=== PATIENT | male | born 1965 | race Caucasian/White ===

== ENCOUNTER 2022-12-20 13:35 | Emergency (ER) | payer BC, SELFPAY ==
--- NOTE | ~2022-12-20 | XR_ITS ---
EXAMINATION: XR finger 1st LT min 2V DATE: 12/20/2022 13:59 INDICATION: Left thumb injury and pain. TECHNIQUE: 3 views of left thumb were obtained. COMPARISON: None. FINDINGS: Bone alignment is normal. No fracture. There is mild osteoarthritis of first carpometacarpa l joint and first interphalangeal joint. IMPRESSION: 1. Mild polyarticular osteoarthritis. Reviewed, dictated and finalized at location A.
--- NOTE | 2022-12-20 13:43 | ED.UPPEXIN ---
HPI - Extremity Injury (Upper) General Chief Complaint: Extremity Injury, Upper Stated Complaint: Left Thumb Injury Source: patient and RN notes reviewed History of Present Illness HPI narrative: 57 yo M presents to urgent care with complaints of left thumb pain and swelling to base of thumb. Pt states about 1 week ago, the cover to a boat motor shut on his thumb. Pt states the initial swelling has improved greatly but he continues to have some swelling to the base of this thumb and some pain. Pt states the cover also hit his right index finger but denies any significant injury. Denies any numbness, tingling, or any other injury. Related Data Home Medications Medication Instructions Recorded Confirmed rosuvastatin 20 mg tablet 20 mg PO DIRECTED 12/20/22 12/20/22 Allergies Allergy/AdvReac Type Severity Reaction Status Date / Time No Known Allergies Allergy Mild Verified 12/20/22 13:51 Review of Systems Review of Systems: CONSTITUTIONAL: Denies fever, chills, or sweats. EYES: Denies visual changes, redness, or discharge. ENT: Denies otalgia and sore throat CARDIOVASCULAR: Denies chest pain, palpitations, or edema. RESPIRATORY: Denies cough or dyspnea. GASTROINTESTINAL: Denies abdominal pain, nausea, vomiting, or diarrhea. GENITOURINARY: Denies dysuria or hematuria. SKIN: Denies rash or itching. MUSCULOSKELETAL: Left thumb pain NEUROLOGIC: Denies headache, numbness, or weakness. Pertinent positives per HPI. PMFSH Comments At the time of my signature, I reviewed and agree with the nursing past medical, surgical, social, and family history. There is no relevant family history pertinent to the patient complaint. Exam Narrative: GENERAL: This is a well-nourished, well-developed patient, in no apparent distress. HEAD: normocephalic, atraumatic. EYES: Sclera clear/white. Vision is grossly intact. EARS: External ears normal, auditory canals clear and without drainage. Hearing grossly intact. NOSE: External nose normal with no obvious nasal discharge, nares without redness, no rhinorrhea. CARDIOVASCULAR: Regular rate RESPIRATORY: No respiratory distress SKIN: warm, intact with no suspicious lesions or rash, good texture and turgor. NEURO: awake, alert, and oriented to person, place and time. There were no obvious focal neurologic abnormalities. EXTREMITIES:full ROM with left thumb. approximately 1 cm area of hardened swelling to 1st MCP joint. No significant tenderness noted. BACK: Nontender without deformity or crepitance. No flank tenderness. Course Course Level of Care: Express Care Visit Vital Signs Vital signs: Vital Signs Temperature 98.7 F 12/20/22 13:46 Pulse Rate 84 12/20/22 13:46 Respiratory Rate 20 12/20/22 13:46 Blood Pressure 130/83 12/20/22 13:46 Pulse Oximetry 98 12/20/22 13:46 Oxygen Delivery Room Air 12/20/22 13:46 Temperature 98.7 F 12/20/22 13:46 Pulse Rate 84 12/20/22 13:46 Respiratory Rate 20 12/20/22 13:46 Blood Pressure 130/83 12/20/22 13:46 Pulse Oximetry 98 12/20/22 13:46 Oxygen Delivery Room Air 12/20/22 13:46 Reviewed MDM - Extremity Injury (Upper) MDM Narrative Medical decision making narrative: If symptoms persist in 1 week after conservative treatment, follow-up with specialist. Follow-up with hand specialist. Dr. Diggs is the hand specialist in [place]. Differential Diagnosis Differential diagnosis: Likely other (thumb Fx, dislocation, cyst) Imaging Data Radiologist's impression: [facility] [employer] [place] [id number] XRay Report Signed Patient: Dane Batista : 1965 MR#: [id number] Age/Sex: 57 / M Acct:[id number] Loc: [facility]? ? ADM Date: 12/20/22Attending Dr: Ordering Physician: Heaven Maldonado APRN Date of Service: 12/20/22 Procedure(s): XR finger 1st LT min 2V Accession Number(s): [id number] cc: Heaven Maldonado APRN; S
[2022-12-20 13:46] VITALS: BP 130/83; PULSE 84; RESP 20; TEMP 37.1; O2SAT 98
== END 2022-12-20 14:26 | disposition home or self-care (01) ==
PROVIDERS: Emergency Provider Nurse Practitioner Family; PCP Internal Medicine Geriatric Medicine
DX: S63.642A Sprain of metacarpophalangeal joint of left thumb, initial encounter (principal); W20.8XXA Other cause of strike by thrown, projected or falling object, initial encounter; E78.00 Pure hypercholesterolemia, unspecified
CPT/HCPCS: 73140; 99213; G0463

== ENCOUNTER 2025-04-28 16:23 | Emergency (ER) | payer OTHER, SELFPAY ==
--- OUTSIDE RECORDS SUMMARY | 2025-04-28 16:25 | XMS_ITS | Clinical Summary ---
Author Organization [facility] [address] [facility] Address [address] [place] [address] Care Team Providers Care Foundry Manager Name Role Phone Madonna Kelly MD Primary Care Provider [phone] Vargas Smith MD Unavailable [phone] Denilson Murray DPM Unavailable [phone] Allergies No known active allergies Medications cyanocobalamin (Vitamin B-12) 1,000 mcg tabletIndications: Prevention of Vitamin B12 Deficiency Take 2 tablets (2,000 mcg total) by mouth daily Active multivitamin with minerals tablet Take 1 tablet by mouth daily Active gabapentin (NEURONTIN) 600 mg tablet TAKE 1 TABLET BY MOUTH AT NIGHT BEFORE BEDTIME 01/14/20 25 Active metFORMIN XR (GLUCOPHAGE XR) 500 mg 24 hr tabletIndications: 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) Take 1 tablet (500 mg total) by mouth daily with dinner 90 tablet 3 02/11/20 25 Active rosuvastatin (CRESTOR) 20 mg tabletIndications: 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),Multiple-typ e hyperlipidemia Take 1 tablet (20 mg total) by mouth daily with dinner 90 tablet 3 02/11/20 25 Active tadalafiL (ADCIRCA) 10 mg tabletIndications: ED (erectile dysfunction) of organic origin Take 1 tablet (10 mg total) by mouth daily as needed for erectile dysfunction 6 tablet 11 02/11/20 25 Active tirzepatide (Mounjaro) 7.5 mg/0.5 mL pen injector injection Inject 0.5 mL (7.5 mg total) under the skin every 7 days 2 mL 04/11/20 25 Active tirzepatide (Mounjaro) 5 mg/0.5 mL pen injector injectionIndicatio ns: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) Inject 0.5 mL (5 mg total) under the skin every 7 days 2 mL 03/13/20 25 025 Discontin ued(Alter josep therapy) Active Problems Problem Noted Date Diagnosed Date Controlled type 2 diabetes with neuropathy 02/10 Idiopathic peripheral neuropathy 07/25/2024 Overweight with body mass in dex (BMI) of 28 to 28.9 in adult 01/25/2024 Fatty infiltration of liver 07/19/2022 Overview (10/03/2022): Determined by CT November 2006 LIVER US 08/31/22:Right upper quadrant ultrasound was performed. No discrete hepatic mass seen. There is increased echotexture of the liver consistent with fatty infiltration. No intrahepatic ductal dilatation seen. The gallbladder is negative for stone. Gallbladder wall measures 1.4 mm. Common bile duct measures 5.5 mm. Pancreas and right kidney are unremarkable. Right kidney measures 9.8 x 4.9 x 5.4 cm. Aorta measures upwards of 2.2 cm in diameter proximally. IVC and portal vein are patent. Assessment & Plan (01/03/2023 9:48 AM CDT): LFTs improving, iron still high, asymptomatic. Down 3 lbs in 3 months. No acute findings on exam. Will check Hep B core Ab IGg and hemachromatosis test. Repeat CMP, CBC, HbA1c, lipids, and iron panel before annual exam in July. Continue heart healthy diet and weight loss. Assessment & Plan (10/03/2022 9:23 AM SUPERVISOR PUBLICATIONS): Confirmed on liver US 08/31/22. LFTs are down but still significantly elevated, +GGT, and elevated ferritin. Tried to start Rybelsus for weight loss/Predibetes, insurance would not cover. Patient still asymptomatic, no acute findings on exam or HSM. Offered GI referral, patient want to see what weight loss will do first. Discussed heart healthy low fat diet in detail. Educated on AHA recommendations for heart healthy exercise. Avoid alcohol and Tylenol use. Follow in 3 months with repeat CMP and iron panel. 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 Liver enzymes are improving, ALT and transferrin still mildly elevated, all other liver workup was unremarkable. Continue current regimen and heart healthy diet and exercise. Assessment & Plan (08/26/2021 4:18 PM SUPERVISOR PUBLICATIONS): Patient returns for follow up on cholesterol as LDL noted to 191 on last labs. He was started on crestor and is tolerating well. He is also seeing great results with medication and LDL is now down to 90. Have encouraged lifestyle modification with low cholesterol diet and exercise. He is to continue medication. He will follow up as scheduled or sooner if needed. Other insomnia 07/09/2021 ED (erectile dysfunction) of organic origin 08/2019 Osteoma 02/21/2020 Assessment & Plan (02/26/2020 9:29 PM CDT): Avoid ear cleaning techniques Avoid water to ears Assessment & Plan (02/21/2020 9:56 AM CDT): Per Dr. Soliman's exam findings. I spoke with him today on the phone since the report is not available--he recommends ENT for this. He does not think this finding is related to the vertigo. Asymmetrical hearing loss 12/21/2013 Overview (07/07/2020): Asymmetrical hearing loss confirmed on audiogram February 2020 right ear much worse than left, MRI head scan (-) Resolved Problems Problem Noted Date Diagnosed Date Resolved Date Controlled type 2 diabetes m ellitus without complication, without long-term current use of insulin 07/25/2024 02/10/2025 Full thickness rotator cuff tear 11/08/2022 01/25/2024 Elevated LFTs 08/30/2022 01/25/2024 Assessment & Plan (10/03/2022 9:24 AM SUPERVISOR PUBLICATIONS): Due to fatty liver disease, see plan above. Assessment & Plan (09/01/2022 8:20 AM SUPERVISOR PUBLICATIONS): Repeat AST/ALT essentially unchanged from last month. Alk Phos was normal. HbA1c was 6.2. no acute findings on exam. Will order Ggt, CBC, hepatitis panel, iron panel, ferritin, MALAIKA, ceruloplasmin. Will order liver US to further assess hepatic function. Will call with results. Discussed starting GLP-1 for prediabetes, will wait until after blood tests and US results. Low fat diet. Heart healthy exercise. Follow in 2 weeks, sooner if needed. Prediabetes 08/30/2022 03/13/2025 Assessment & Plan (01/03/2023 10:39 AM CDT): Insurance denied Rybelsus, patient refused injectables. Fasting sugar on labs last week was 122. No acute findings on exam. Continue to adjust diet and increase heart healthy exercise. Assessment & Plan (08/30/2022 9:18 AM SUPERVISOR PUBLICATIONS): Repeat AST/ALT essentially unchanged from last month. Alk Phos was normal. HbA1c was 6.2. no acute findings on exam. Will order Ggt, CBC, hepatitis panel, iron panel, ferritin, and liver US to further assess hepatic function. Will call with results. Discussed starting GLP-1 for prediabetes, will wait until after blood tests and US results. Low fat diet. Heart healthy exercise. Call with any changes or concerns. Encounter for screening colonoscopy 07/17/2020 07/09/2021 Overview (07/17/2020): Added automatically from request for surgery [id number] BPPV (benign paroxysmal posi tional vertigo), left 02/26/2020 07/07/2020 Assessment & Plan (03/23/2020 9:24 AM CDT): Post Eply maneuver by ENT a few weeks ago, and pt report no episodes of dizziness since then. He is cleared to go back to work, and pt reports that he will also have to be evaluated by his doctor at work as well. I have asked him to let us know if the dizziness returns. Assessment & Plan (02/26/2020 9:29 PM CDT): Left Benign Positional Vertigo treated with Iris Maneuver today Warm compresses and massage to neck and right jaw and shoulders Call if no improvement in Dizziness in the next two weeks Good hydration Post-Iris maneuver instructions discussed and Handout provided Tinnitus of right ear 02/05/20202024 Vertigo 01/28/2020 07/07/2020 Assessment & Plan (02/21/2020 1:20 PM CDT): Spoke with Dr. BAUTISTA and she recommends referral to neurology. Pt did have Brain and cervical MRI January 27 while inpatient as well as a stress test. Pt needs to remain off work until his vertigo is resolved and I have given him a note. He will f/u with us in 1 month. I have suggested P.T. as well and patient states that he does not want to go back bc it made him very sick. I have suggested that he take meclizine but he reports that it doesn't really seem to make a difference for him. He saw Dr. Soliman for audiology and we are awaiting that report, but I did get to speak with him today on the phone, and he did say that he saw a osteoma in his right ear, but he did not think that this finding would be associated with the vertigo. Dysequilibrium 01/28/2020 02/05/2020 Exertional dyspnea 01/28/2020 0 Cobalamin deficiency 12/21/2013 020 Overview (11/11/2016): B12 deficiency Encounters Date Type Department Care Team Description 04/28/2025 Telephone [facility] [address] [place] [address] Madonna Kelly MD 04/11/2025 9:30 AM CDT Office Visit [facility] [address] [place] [address] Paloma Zimmerman NP 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) (Primary Dx); Overweight with body mass index (BMI) of 28 to 28.9 in adult 04/04/2025 8:25 AM CDT Lab [facility] [address] [place] [address] 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) 03/13/2025 10:30 AM CDT Office Visit [facility] [address] [place] [address] Paloma Zimmerman NP 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) (Primary Dx); Overweight with body mass index (BMI) of 29 to 29.9 in adult 03/13/2025 [facility]phone [facility] [address] [place] [address] Madonna Kelly MD 02/10/2025 11:15 AM CDT Office Visit [facility] [address] [place] [address] Madonna Kelly MD Annual physical exam (Primary Dx); 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); Fatty infiltration of liver; Multiple-type hyperlipidemia; ED (erectile dysfunction) of organic origin 02/10/2025 Results [facility] [address] [place] [address] Madonna Kelly MD PSA screen, Lipid panel, Hemoglobin A1c, Additional followed-up results: 4 02/06/2025 9:05 AM CDT Lab [facility] [address] [place] [address] New onset type 2 diabetes mellitus (HCC); Multiple-type hyperlipidemia from Last 3 Months Immunizations Immunization Administration Dates Next Due Influenza, Quadrivalent, Spl it, Preservative Free, Intramuscular 07/19/2022,07/09/2021,07/07/2020 Influenza, Unspecified 07/25/2024(Deferred: Elvia ent Refused) MMR 11/05/2006 Tdap 07/09/2021,06/08/2012 Surgical History Surgery Date Site/Laterality Comments COLONOSCOPY 11/06/2007 - 12/05/2007 (-) Dr. Crane COLONOSCOPY 08/31/2020 (-) Dr. Smith sigmoid diverticulosis ARTHROSCOPIC REPAIR SLAP LESION SHOULDER W/ W/O THERMAL CAPSULORRHAPHY 05/26/[address] [facility] surgery [place]o right rotator cuff repair Medical History Medical History Date Comments Hyperlipidemia Full thickness rotator cuff tear 11/08/2022 Social History Tobacco Use Types Packs/Day Years Used Date Smoking Tobacco: Never Smokeless Tobacco: Never Tobacco Cessation:Counseling Given: Yes Alcohol Use Standard Drinks/Week Comments Yes 10 (1 standard drink = 0.6 oz pu re alcohol) AUDIT-C Answer Date Recorded Q1: How often do you have a drink containing alc ohol? 2-3 times a week 02/10/2025 Q2: How many drinks containi ng alcohol do you have on a typical day when you are drinking? 3 or 4 02/10/2025 Q3: How often do you have si x or more drinks on one occasion? Weekly 02/10/2025 PHQ-2 Answer Date Recorded PHQ-2 Total Score (If total score is 3 or more points, staff should administer the PHQ-9) 0 04/11/2025 Sex and Gender Information Value Date Recorded Sex Assigned at Not on file Legal Sex Male 1:01 PM SUPERVISOR PUBLICATIONS Gender Identity Not on file Sexual Orientation Not on file Obstetrics History Last Filed Vital Signs Vital Sign Reading Time Taken Comments Blood Pressure 128/66 04/11/2025 9:25 AM CDT Pulse 73 04/11/2025 9:25 AM CDT Temperature 36.1 C (96.9 F) 04/11/2025 9:25 AM CDT Respiratory Rate 18 04/11/2025 9:25 AM CDT Oxygen Saturation 96% 04/11/2025 9:25 AM CDT Inhaled Oxygen Concentration - - Weight 84.4 kg (186 lb) 04/11/2025 9:25 AM CDT Height 172.7 cm (5' 8) 04/11/2025 9:25 AM CDT Body Mass Index 28.28 04/11/2025 9:25 AM CDT Plan of Treatment Health Maintenance Due Date Last Done Comments Dilated Eye Exam 1965 Foot Exam 1965 Hepatitis B Screening 1981 Zoster Vaccine (1 of 2) 2013 Covid-19 Vaccine (3 - season) 2025 10/13/2020, 09/15/2020 Influenza Vaccine (#1) 2025 , 07/09/2021, 07/07/2020 Hemoglobin A1C 08/09/2025 02/06/2025, 07/07, 01/25/2024, Additional history exists Albumin Creatinine Ratio, Urine 02/06/2026 02/06/2025, 07/16/2024, 01/25/2024 Lipid Panel 02/06/2026 02/06/2025, 07/07, 07/11/2022, Additional history exists Regular Well Visit/Exam 18-64 02/10/2026 02/10/2025, 01/25/2024, 07/19/2022, Additional history exists eGFR 04/04/2026 04/04/2025, 07/0 10/2024, 07/16/2024, Additional history exists Depression Screening 04/11/2026 04/11/2025, 03/13/2025, 01/25/2024, Additional history exists Prostate Cancer Screening-PSA 02/06/2027 02/06/2025, 01/25/2024, 07/11/2022, Additional history exists Colon Cancer Screening-Colonoscopy 08/28/2030 08/28/2020 DTaP/Tdap/Td Vaccine (3 - Td or Tdap) 07/09/2031 07/09/2021, 06/08/2012 Colon Cancer Screening-CT Colonography Discontinued 08/28/2020 Colon Cancer Screening-DNA Stool Discontinued 08/28/2020 Colon Cancer Screening-FIT Discontinued 08/28/2020 Colon Cancer Screening-Sigmoidoscopy Discontinued 08/28/2020 Hepatitis C Screening Completed 08/30/2022, 021 Pneumococcal vaccine <65 Aged Out No longer eligible based on patient's age to complete this topic Procedures Procedure Name Priority Date/Time Associated Diagnosis Comments EGFR Routine 04/04/2025 8:10 AM CDT 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) BASIC METABOLIC PANEL Routine 04/04/2025 8:10 AM CDT 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) EGFR Routine 02/06/2025 9:53 AM CDT New onset type 2 diabetes mellitus (HCC) ALBUMIN CREATININE RATIO, URINE Routine 02/06/2025 9:53 AM CDT New onset type 2 diabetes mellitus (HCC) CHOLESTEROL, LDL, DIRECT Routine 02/06/2025 9:53 AM CDT New onset type 2 diabetes mellitus (HCC) COMPREHENSIVE METABOLIC PANEL Routine 02/06/2025 9:53 AM CDT New onset type 2 diabetes mellitus (HCC) HEMOGLOBIN A1C Routine 02/06/2025 9:53 AM CDT New onset type 2 diabetes mellitus (HCC) LIPID PANEL Routine 02/06/2025 9:53 AM CDT Multiple-type hyperlipidemia PSA SCREEN Routine 02/06/2025 9:53 AM CDT New onset type 2 diabetes mellitus (HCC) HEPATITIS PANEL, ACUTE Routine 08/30/2022 8:55 AM SUPERVISOR PUBLICATIONS Elevated LFTs COLONOSCOPY 08/28/2020 9:14 AM SUPERVISOR PUBLICATIONS from Last 3 Months or Most Recently Relevant to Health Maintenance Results * eGFR (04/04/2025 8:10 AM CDT) eGFR >90 >=60 mL/min/1. 73 m2 Comment: Interpretive Data Reference Interval Normal >/= 90 mL/min/1.73m2 Mildly decreased* 60 - 89 mL/min/1.73m2 Mildly to moderately decreased 45 - 59 mL/min/1.73m2 Moderately to severely decreased 30 - 44 mL/min/1.73m2 Severely decreased 15 - 29 mL/min/1.73m2 Kidney Failure < 15 mL/min/1.73m2 *Relative to young adult level Estimated glomerular filtration rate is determined by the 2020 CKD-EPI equation recommended by the National Kidney Foundation (A Unifying Approach to GFR Estimation: Recommendations of the NKF-ASK Task Force on Reassessing the Inclusion of Race in Diagnosing Kidney Disease, JASN 2020). The CKD-EPI equation should not be used for patients with unstable renal function and has not been validated in children and those over 70. Current interpretive data was last reviewed 2021. Testing performed by: [address] [address] Blood 04/04/2025 8:10 AM CDT 04/04/2025 2:08 PM CDT us Paloma Zimmerman NP LAB BLOOD ORDERABLES Final Resul t JUNE YOUNG ([place]) [address] [facility] [place] [address] * Basic metabolic panel (04/04/2025 8:10 AM CDT) Sodium 137 135 - 145 mmol/L Comment:Testing performed by : [address] [address] Potassium, pl 4.3 3.3 - 4.9 mmol/L JUNE YOUNG ([place]) Comment:Testing performed by : [address] [address] Chloride 102 97 - 110 mmol/L JUNE YOUNG ([place]) Comment:Testing performed by : [address] [address] CO2 25 22 - 32 mmol/L JUNE YOUNG ([place]) Comment:Testing performed by : [address], [address] Anion gap 10 2 - 15 mmol/L JUNE YOUNG ([place]) Comment:Testing performed by : [address], [address] BUN 12 6 - 25 mg/dL JUNE YOUNG ([place]) Comment:Testing performed by : [address] [address] Creatinine 0.91 0.80 - 1.30 mg/dL JUNE YOUNG ([place]) Comment:Testing performed by : [facility], [address] [place] [address]., [address] Glucose 116 70 - 199 mg/dL JUNE YOUNG ([place]) Comment: Interpretive Data Fasting glucose >/= 126 mg/dl is diagnostic for diabetes. Fasting is defined as no caloric intake for at least 8 hours. Fasting glucose between 100 mg/dl to 125 mg/dl is diagnostic of prediabetes. In a patient with classic symptoms of hyperglycemia or hyperglycemic crisis, a random glucose >/= 200 mg/dl is diagnostic for diabetes. In the absence of unequivocal hyperglycemia, results should be confirmed by repeat testing. The classification and Diagnosis of Diabetes Diabetes Care 2021; 46: S19-S40. Current interpretive data was last revised 2022. Testing performed by: [facility], [address] [place] [address]., [address] Calcium 9.5 8.5 - 10.3 mg/dL JUNE YOUNG ([place]) Comment:Testing performed by : [address] [address] Blood 04/04/2025 8:10 AM CDT 04/04/2025 1:50 PM CDT us Paloma Zimmerman NP LAB BLOOD ORDERABLES Final Resul t JUNE YOUNG ([place]) 1 [facility] Department [place] [address] * eGFR (02/06/2025 9:53 AM CDT) eGFR >90 >=60 mL/min/1. 73 m2 Comment: Interpretive Data Reference Interval Normal >/= 90 mL/min/1.73m2 Mildly decreased* 60 - 89 mL/min/1.73m2 Mildly to moderately decreased 45 - 59 mL/min/1.73m2 Moderately to severely decreased 30 - 44 mL/min/1.73m2 Severely decreased 15 - 29 mL/min/1.73m2 Kidney Failure < 15 mL/min/1.73m2 *Relative to young adult level Estimated glomerular filtration rate is determined by the 2020 CKD-EPI equation recommended by the National Kidney Foundation (A Unifying Approach to GFR Estimation: Recommendations of the NKF-ASK Task Force on Reassessing the Inclusion of Race in Diagnosing Kidney Disease, JASN 2020). The CKD-EPI equation should not be used for patients with unstable renal function and has not been validated in children and those over 70. Current interpretive data was last reviewed 2021. Testing performed by: [facility], [address] [place] [address]., [address] Blood 02/06/2025 9:53 AM CDT 02/06/2025 4:08 PM CDT us Madonna Kelly MD LAB BLOOD ORDERABLES Final Result Performing Organization Address [facility] Co de Phone Number JUNE YOUNG ([place]) [address] [facility] [place] [address] * PSA screen (02/06/2025 9:53 AM CDT) PSA-Total 0.52 <=5.40 ng/mL Comment: Interpretive Data AGE SEX REFERENCE INTERVAL 0 minutes-150 years Female None 0 minutes-49 years Male None 50-59 years Male 0-3.90 60-69 years Male 0-5.40 70-79 years Male 0-6.20 80-150 years Male 0-6.20 The [employer] PSA Total assay procedure was used. Results from different manufacturers or methods may not be comparable. Serial testing should be performed using the same method. Current interpretive data last revised 21. Testing performed by: [facility], [address] [place] [address]., [address] Blood 02/06/2025 9:53 AM CDT 02/06/2025 3:10 PM CDT us Madonna Kelly MD LAB BLOOD ORDERABLES Final Result Performing Organization Address [facility] Co de Phone Number JUNE YOUNG ([place]) 1 [facility] Department [place] [address] * Albumin Creatinine Ratio, Urine (02/06/2025 9:53 AM CDT) Albumin Ur <12.0 mg/L Comment: Interpretive Data No reference range established. Current interpretive data was last revised 2018. Testing performed by: [facility], [address] [place] [address]., [id number] Creatinine Ur 137.1 mg/dL JUNE YOUNG ([place]) Comment: Interpretive Data No reference range established. Current interpretive data was last revised 2018. Testing performed by: [facility], [address] [place] [address]., [address] Albumin Creatinine Ratio, Ur <9 1 - 29 mg/g JUNE YOUNG ([place]) Comment:Testing performed by : [address] [address] Urine 02/06/2025 9:53 AM CDT 02/06/2025 3:10 PM CDT us Madonna Kelly MD LAB URINE ORDERABLES Final Result HUNTERADAM YOUNG ([place]) 1 [facility] [place] [address] * Cholesterol, LDL, direct (02/06/2025 9:53 AM CDT) LDL Cholesterol, Direct 57 <=129 mg/dL Comment: Interpretive Data Ages < or = 19 years Acceptable: <110 mg/dL Borderline high: 110-129 mg/dL High: >or= 130 mg/dL Ages > or = 20 years Optimal: <100 mg/dL Near optimal: 100-129 mg/dL Borderline high: 130-159 mg/dL High: >160 mg/dL Literature References: 1. Expert Panel on Integrated Guidelines for Cardiovascular Health and Risk Reduction in Children and Adolescents. Pediatrics 2011;128:S213 2. NCEP Expert Panel. Circulation 2004;110:227 Current Interpretive Data was last revised on 2018. Testing performed by: [address] [address] Blood 02/06/2025 9:53 AM CDT 02/06/2025 3:10 PM CDT us Madonna Kelly MD LAB BLOOD ORDERABLES Final Result Performing Organization Address [facility] Co de Phone Number JUNE YOUNG ([place]) [address] [place] [address] * (ABNORMAL) Hemoglobin A1c (02/06/2025 9:53 AM CDT) Hgb A1C 6.7(H) 4.0 - 5.6 % Comment:Testing performed by : [facility], [address] [place] [address]., [id number] Estimated Average Glucose 146 mg/dL JUNE YOUNG ([place]) Comment: The ADA recommends reporting an estimated Average Glucose (eAG) with all Hemoglobin A1c results using the equation derived from a study of 507 normal and diabetic adults. Minority populations were underrepresented and children were not included. (Diabetes Care 31:7791-7449, 2008). The eAG is not equivalent to a fasting glucose. Testing performed by: [facility], [address] [place] [address], [place]., [address] Blood 02/06/2025 9:53 AM CDT 02/06/2025 3:10 PM CDT Madonna Kelly MD LAB BLOOD ORDERABLES Final Result Performing Organization Address City/[facility] Co de Phone Number JUNE YOUNG ([place]) [address] [place] [address] * (ABNORMAL) Lipid panel (02/06/2025 9:53 AM CDT) Cholesterol 118 30 - 199 mg/dL Comment: Interpretive Data Ages < or = 19 years Acceptable: <170 mg/dL Borderline high: 170-199 mg/dL High: >or= 200 mg/dL Ages > or = 20 years Desirable: <200 mg/dL Borderline high: 200-239 mg/dL High: >or= 240 mg/dL Literature References: 1. Expert Panel on Integrated Guidelines for Cardiovascular Health and Risk Reduction in Children and Adolescents. Pediatrics 2011;128:S213 2. NCEP Expert Panel. Circulation 2004;110:227 Current Interpretive Data was last revised on 2018. Testing performed by: [facility], [address] [place] [address]., [address] Triglycerides 141 <=149 mg/dL [facility] ([place]) Comment: Interpretive Data Ages < or = 9 years Acceptable: <75 mg/dL Borderline high: 75-99 mg/dL High: >or= 100 mg/dL Ages 10 to 20 years Acceptable: <90 mg/dL Borderline high: 90-129 mg/dL High: >or= 130 mg/dL Ages > or = 20 years Desirable: <150 mg/dL Borderline high: 150-199 mg/dL High: 200-499 mg/dL Very high: >or= 499 mg/dL Literature References: 1. Expert Panel on Integrated Guidelines for Cardiovascular Health and Risk Reduction in Children and Adolescents. Pediatrics 2011;128:S213 2. NCEP Expert Panel. Circulation 2004;110:227 Current Interpretive Data was last revised on 2018. Testing performed by: [facility], [address] [place] [address]., [address] HDL 33(L) >=40 mg/dL [facility] ([facility]) Comment: Interpretive Data Ages < or = 19 years Acceptable: >45 mg/dL Borderline low: 40-45 mg/dL Low: <40 mg/dL Ages > or = 20 years Desirable: >or= 60 mg/dL Low: <40 mg/dL Literature References: 1. Expert Panel on Integrated Guidelines for Cardiovascular Health and Risk Reduction in Children and Adolescents. Pediatrics 2011;128:S213 2. NCEP Expert Panel. Circulation 2004;110:227 Current Interpretive Data was last revised on 2018. Testing performed by: [facility], [address] [place] [address]., [address] LDL, calculated 60 <=129 mg/dL [facility] ([facility]) Comment: Interpretive Data Ages < or = 19 years Acceptable: <110 mg/dL Borderline high: 110-129 mg/dL High: >or= 130 mg/dL Ages > or = 20 years Optimal: <100 mg/dL Near optimal: 100-129 mg/dL Borderline high: 130-159 mg/dL High: >160 mg/dL Calculated using the Garrett LDL-C estimating equation. This equation was implemented on 2024. Prior to this date LDL-C was estimated using the Friedewald equation. Literature References: 1. Expert Panel on Integrated Guidelines for Cardiovascular Health and Risk Reduction in Children and Adolescents. Pediatrics 2011;128:S213 2. NCEP Expert Panel. Circulation 2004;110:227 3. Garrett Pro et al. JENNY Cardiol. 2020 December 05;5(5):540-548. doi: 10.1001/jamacardio.2020.0013 Current Interpretive Data was last revised on 2024. Testing performed by: [address] [address] Non-HDL Cholesterol 85 mg/dL [facility] (R[facility]CI) Comment: Interpretive Data Ages < or = 19 years Acceptable: <120 mg/dL Borderline high: 120-144 mg/dL High: >145 mg/dL Ages > or = 20 years When triglycerides are >200 mg/dL, Non-HDL cholesterol is a secondary target of therapy with treatment goals that are 30 mg/dL greater than the LDL cholesterol target. Literature References: 1. Expert Panel on Integrated Guidelines for Cardiovascular Health and Risk Reduction in Children and Adolescents. Pediatrics 2011;128:S213 2. NCEP Expert Panel. Circulation 2004;110:227 Current Interpretive Data was last revised on 2018. Testing performed by: [address] [address] Chol/HDL ratio 4 LARRY [facility] (RICCI) Comment:Testing performed by : [address] [address] Blood 02/06/2025 9:53 AM CDT 02/06/2025 3:10 PM CDT us Madonna Kelly MD LAB BLOOD ORDERABLES Final Result [facility] (RICCI) 1 [facility] Department [place] [address] * (ABNORMAL) Comprehensive metabolic panel (02/06/2025 9:53 AM CDT) Sodium 140 135 - 145 mmol/L Comment:Testing performed by : [facility], [address] [place] [address]., [address] Potassium, pl 4.7 3.3 - 4.9 mmol/L [facility] ([facility]) Comment:Testing performed by : [facility], [address] [place] [address]., [address] Chloride 106 97 - 110 mmol/L [facility] ([facility]) Comment:Testing performed by : [address] [address] CO2 22 22 - 32 mmol/L [facility] ([facility]) Comment:Testing performed by : [address] [address] Anion gap 12 2 - 15 mmol/L [facility] ([facility]) Comment:Testing performed by : [address] [address] BUN 11 6 - 25 mg/dL [facility] ([facility]) Comment:Testing performed by : [address] [address] Creatinine 0.79(L) 0.80 - 1.30 mg/dL [facility] ([facility]) Comment:Testing performed by : [address] [address] Glucose 112 70 - 199 mg/dL [facility] ([facility]) Comment: Interpretive Data Fasting glucose >/= 126 mg/dl is diagnostic for diabetes. Fasting is defined as no caloric intake for at least 8 hours. Fasting glucose between 100 mg/dl to 125 mg/dl is diagnostic of prediabetes. In a patient with classic symptoms of hyperglycemia or hyperglycemic crisis, a random glucose >/= 200 mg/dl is diagnostic for diabetes. In the absence of unequivocal hyperglycemia, results should be confirmed by repeat testing. The classification and Diagnosis of Diabetes Diabetes Care 2021; 46: S19-S40. Current interpretive data was last revised 2022. Testing performed by: [facility], [address] [place] [address]., [address] Calcium 9.5 8.5 - 10.3 mg/dL [facility] ([facility]) Comment:Testing performed by : [address], [address] Bilirubin, total 0.9 0.1 - 1.2 mg/dL [facility] ([facility]) Comment:Testing performed by : [facility], [address] [place] [address]., [address] Protein, pl 7.4 6.5 - 8.5 g/dL [facility] ([facility]) Comment:Testing performed by : [facility], [address] [place] [address], [address] Albumin 4.5 3.5 - 5.0 g/dL [facility] Comment:Testing performed by : [facility], [address] [place] [address], [address] Alk phos 73 40 - 130 Units/L [facility] Comment:Testing performed by : [facility], [address] [place] [address], [address] ALT 49 7 - 55 Units/L [facility] ([facility]) Comment:Testing performed by : [facility], [address] [place] [address], [address] AST 51(H) 10 - 50 Units/L [facility] ([facility]) Comment:Testing performed by : [facility], [address] [place] [address], [address] Blood 02/06/2025 9:53 AM CDT 02/06/2025 3:10 PM CDT us Madonna Kelly MD LAB BLOOD ORDERABLES Final Result [facility] 1 [facility] Department [place] [address] * Hepatitis panel, acute (08/30/2022 8:55 AM SUPERVISOR PUBLICATIONS) Hep A IgM Nonreactive Nonreactive [facility] Comment: Interpretive Data: If Hep A IgM Ab is reported as Equivocal, a new sample should be drawn in two weeks for testing. Current interpretive data was last revised on 19. Hep B core IgM Nonreactive Nonreactive [facility] Comment: Interpretive Data If HepB Core IgM Ab is reported as Equivocal, a new sample should be drawn in two weeks for testing. Current interpretive data was last revised on 19. Hep C Ab Nonreactive Nonreactive [facility] Comment: Interpretive Data Nonreactive: Antibodies to HCV not detected. Does NOT exclude the possibility of recent exposure to HCV. Equivocal: Equivocal for HCV antibodies. Supplemental molecular testing will be automatically performed to determine infection status in accordance with current CDC screening recommendations. Reactive: Positive for HCV antibodies. This may represent current or past HCV infection. Supplemental molecular testing will be automatically performed to determine current infection status in accordance with current CDC screening recommendations. Interpretive data was last revised on 2019. HepBsAg Nonreactive Nonreactive [facility] Blood 08/30/2022 8:55 AM SUPERVISOR PUBLICATIONS 08/30/2022 3:19 PM SUPERVISOR PUBLICATIONS us Paloma Zimmerman NP LAB MICROBIOLOGY - GENERAL ORDER JORDAN Final Result JUNE [id number] [address] Department [place] [address] * COLONOSCOPY (08/28/2020 9:14 AM SUPERVISOR PUBLICATIONS) Anatomical Region Laterality Modality Other Narrative Procedure Note Vargas Smith MD - 08/28/2020 9:14 AM CST [facility] Patient Name: Dane Batista Procedure Date: 08/28/2020 9:14 AM Date of : 1965 Admit Type: Outpatient Age: 55 Gender: Male Attending MD: Vargas Smith M.D. Room: [facility] ROOM 2 Note Status: Finalized Patient Profile: Refer to note in patient chart for documentation of history and physical. Procedure: Colonoscopy Indications: Screening for colorectal malignant neoplasm, Last colonoscopy: November 2006 Referring MD: Madonna Kelly M.D. Providers: Vargas Smith M.D. Impression: - Hemorrhoids found on perianal exam. - Diverticulosis in the sigmoid colon. - The examination was otherwise normal. - No specimens collected. Recommendation: - Discharge patient to home. - Resume previous diet. - Continue present medications. - Repeat colonoscopy in 10 years for screeningpurposes. - Return to primary care physician as previously scheduled. Medicines: Propofol per Anesthesia Complications: No immediate complications. Estimated Blood Loss: Estimated blood loss: none. Procedure: Pre-Anesthesia Assessment: - This assessment was completed [Time of Assessment] prior to the administration of sedation. The benefits, risks and alternatives of theprocedure and sedation were discussed and informed consent was obtained. All questions were answered. Please referto the signed informed consent document in the medical record. Bowel prep was administered using a single dose. The bowel preparation used was Miralax. Thebowel preparation used was bisacodyl tablets. The scopewas passed under direct vision. The [id number] was introduced through the anus andadvanced to the the cecum, identified by appendiceal orificeand ileocecal valve. The colonoscopy was performedwithout difficulty. The patient tolerated the procedurewell. The quality of the bowel preparation wasexcellent. Findings: Hemorrhoids were found on perianal exam. Multiple small and large-mouthed diverticula were found in thesigmoid colon. The exam was otherwise without abnormality. Electronically signed by Vargas Smith M.D. Vargas Smith M.D. 08/28/2020 10:18:08 AM Number of Addenda: 0 Note Initiated On: 08/28/2020 9:14 AM Procedure Code(s): --- Professional --- G0121, Colorectal cancer screening; colonoscopy on individual not meeting criteria for high risk Diagnosis Code(s): --- Professional --- K57.30, Diverticulosis of large intestine without perforation orabscess without bleeding K64.9, Unspecified hemorrhoids Z12.11, Encounter for screening for malignant neoplasm of colon CPT copyright 2017 [employer] [place] [employer]. All rights reserved. The codes documented in this report are preliminary and upon cpc coder reviewmay be revised to meet current compliance requirements. 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 POWER OF A [employer] * Full Code (Latest Code Status on File) Date Activated Date Inactivated Comments 08/28/2020 9:35 AM 08/28/2020 3:16 PM * Full Code Date Activated Date Inactivated Comments 08/28/2020 9:35 AM 08/28/2020 9:35 AM * Full Code Date Activated Date Inactivated Comments 01/27/2020 8:39 PM 01/29/2020 11:08 PM Care Teams Foundry Manager Relationship Specialty Start Date End Date Madonna Kelly MD PCP - General 04/03/12 Vargas Smith MD [address] [place] [address] [place] [address] Referring Physician Gastroenterology 01/24/21 Denilson Murray DPM [address] [place] [address] [place] [address] Consulting Physician Foot and Ankle Surg 02/10/25
[2025-04-28 16:28] VITALS: BP 122/87; PULSE 103; RESP 18; TEMP 37.1; O2SAT 98
--- OUTSIDE RECORDS SUMMARY | 2025-04-28 16:28 | XMS_ITS | Encounter Summary ---
Author Organization [facility] Healthcare Address [address] [place] [address] Care Team Providers Care Package Clerk Name Role Phone Madonna Kelly MD Primary Care Provider [phone] Vargas Smith MD Unavailable [phone] Denilson Murray DPM Unavailable [phone] Encounter Details Date Type Department Care Team (Late st Contact Info) Description 04/28/2025 Telephone [facility] [address] [place] [id number] Madonna Kelly MD [address] [place] [address] Social History Tobacco Use Types Packs/Day Years Used Date Smoking Tobacco: Never Smokeless Tobacco: Never Alcohol Use Standard Drinks/Week Comments Yes 10 [...] on file 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 No hematuria. No fevers, no chills, no night sweats. Questions if this could be due to his medications. [facility] [phone] documented in this encounter Plan of Treatment Not on file documented as of this encounter Visit Diagnoses Not on filedocumented in this encounter Care Teams Package Clerk Relationship Specialty Start Date End Date Madonna Kelly MD PCP - General 04/03/12 Vargas Smith MD [address] [place] [address] Referring Physician Gastroenterology 01/24/21 Denilson Murray DPM [address] [place] [address] [place] [address] Consulting Physician Foot and Ankle Surg 02/10/25 documented as of this encounter
[2025-04-28 16:41] LABS: EDUAAPPEAR Cloudy; EDUABILI Negative (Negative); EDUABLOOD 2+ (Negative); EDUACOLOR1 Yellow; EDUAGLUCOSE Negative (Negative); EDUAKETONE Negative (Negative); EDUALEUKO 3+ (Negative); EDUANITRATE Negative (Negative); EDUAPH 6.0; EDUAPROTEIN 2+ (Negative); EDUASPGRAVITY 1.020; EDUAUROBILI 0.2
--- NOTE | 2025-04-28 16:48 | ED.MALEGU ---
HPI - Male Genitourinary General Chief complaint: Urogenital-Male Stated complaint: burning urination Time Seen by Provider: 04/28/25 16:40 Source: patient and RN notes reviewed Mode of arrival: ambulatory Limitations: no limitations History of Present Illness HPI Narrative: 60-year-old male presents Express Care complaining of urinary symptoms for approximately 4 days. Patient or dysuria, frequency, hesitancy, and suprapubic pressure. Patient has a his history of urinary tract infections. Patient denies any abdominal pain, back pain, flank pain, fevers, body aches, chills, nausea, vomiting, diarrhea, or any other symptoms. Patient denies any concern for STDs, penile discharge, testicular pain or swelling. Patient says he has a history of pre diabetes currently on monjuaro for weight loss. Patient has been taking onuh-wxw-maydnds help with symptoms. Related Data Home Medications ?Medication ?Instructions ?Recorded ?Confirmed ?Last Taken ?Type rosuvastatin 20 mg tablet 20 mg PO DIRECTED 12/20/22 12/20/22 Unknown History Allergies Allergy/AdvReac Type Severity Reaction Status Date / Time No Known Allergies Allergy Mild Verified 04/28/25 16:32 Review of Systems Review of Systems: CONSTITUTIONAL: Denies fever, chills, body aches, or sweats. EYES: Denies visual changes, redness, or discharge. ENT: Denies rhinorrhea, congestion, sore throat, or otalgia. CARDIOVASCULAR: Denies chest pain, palpitations, or edema. RESPIRATORY: Denies cough or dyspnea. GASTROINTESTINAL: Denies abdominal pain, nausea, vomiting, or diarrhea. GENITOURINARY: Positive for dysuria, hesitancy, suprapubic pressure, increased frequency. Negative for hematuria, penile discharge, testicular pain, scrotal swelling. SKIN: Denies rash or itching. MUSCULOSKELETAL: Denies back pain, joint pain, or myalgia. NEUROLOGIC: Denies headache, numbness, or weakness. PSYCHIATRIC: Denies anxiety or depression. All other systems reviewed are negative, except as documented in HPI. PMFSH Comments At the time of my signature, I reviewed and agree with the nursing past medical, surgical, social, and family history. There is no relevant family history pertinent to the patient complaint. Exam Narrative: GENERAL: This is a well-nourished, well-developed adult, in no apparent distress. They are non ill-appearing, nontoxic appearing. HEAD: normocephalic, atraumatic. EYES: Sclera clear/white. Vision is grossly intact. Conjunctiva normal bilaterally. Extraocular movements intact. EARS: External ears normal,Hearing grossly intact. NOSE: External nose normal THROAT: Mucous membranes moist NECK: Normal range of motion CARDIOVASCULAR: Regular rate and rhythm. Normal S1-S2. No clicks, gallops, rubs, murmurs. RESPIRATORY: Respiratory rate normal, respiratory effort nonlabored, no respiratory distress. Lung sounds clear to auscultation throughout. Lung sounds equal bilaterally. No adventitious lung sounds. GASTROINTESTINAL: Abdomen soft, flat, non-tender, nondistended. Bowel sounds are active. No hepato-splenomegaly, or palpable masses. No guarding or rigidity. No rebound tenderness. SKIN: warm, Dry, intact with no suspicious lesions or rash, good texture and turgor. NEURO: awake, alert, and oriented to person, place and time. There were no obvious focal neurologic abnormalities. EXTREMITIES: No joint tenderness, effusion, or edema noted. BACK: Nontender without deformity. No CVA tenderness. Course Course Emergency Course: Portions of this record may have been created with voice recognition software Level of Care: Express Care Visit Vital Signs Vital signs: Vital Signs Temperature 98.7 F 04/28/25 16:28 Pulse Rate 103 H 04/28/25 16:28 Respiratory Rate 18 04/28/25 16:28 Blood Pressure 122/87 04/28/25 16:28 Pulse Oximetry 98 04/28/25 16:28 Oxygen Delivery Room Air 04/28/25 16:28 Temperature 98.7 F 04/28/25 16:28 Pulse Rate 103 H 04/28/25 16:28 Respiratory Rate 18 04/28/25 16:28 Blood Pressure 122/87 04/28/25 16:28 Pulse Oximetry 98 04/28/25 16:28 Oxygen Delivery Room Air 04/28/25 16:28 Reviewed MDM - Male Genitourinary MDM Narrative Medical decision making narrative: Urine dipstick shows evidence of urinary tract infection. Urine cultures pending. Patient's symptoms are clinically consistent with urinary tract infection. Patient has no systemic symptoms, no CVA tenderness. No peritoneal findings, no abdominal tenderness. Vital signs hemodynamically stable, mild tachycardia present. The patient is afebrile. Patient is nontoxic appearing and in no apparent distress. Patient denies any concerns for STIs. Will Go ahead and treat him with Bactrim. Discussed physical exam findings. Advised supportive measures and signs/symptoms to go to the ER. Pt is appropriate for outpt treatment and f/u. Differential Diagnosis Differential diagnosis: Likely urinary tract infection, epididymitis, prostatitis, acute retention of urine and other (Urinary tract infection.) Lab Data Attestation: I reviewed the patient's lab results. Labs: Lab Results 04/28/25 Range/Units 16:36 POC Urine Color Yellow POC Urine Clarity Cloudy POC Urine pH 6.0 POC Ur Specif Carson 1.020 POC Urine Protein 2+ (Negative) POC Ur Glucose (UA) Negative (Negative) POC Urine Ketones Negative (Negative) POC Urine Blood 2+ (Negative) POC Urine Nitrite Negative (Negative) POC Urine Bilirubin Negative (Negative) POC Urine Urobilinogen 0.2 POC U Leukocyte Esteras 3+ (Negative) Critical Care Time Critical Care Time Critical Care Time: No Discharge Plan Discharge Clinical Impression: Urinary tract infection Patient Disposition: Home Condition: Stable Instructions: Antibiotic Form, Urinary Tract Infection in Men (ED) Additional Instructions: Take the antibiotic as prescribed The urine will be sent of for a culture to identify what type of bacteria is causing your infection. If the culture shows that the antibiotic will not get rid of your infection, you will be notified and a new antibiotic will be called in for you. Increase water intake you will need to follow up with your PCP 3-5 days. Go to the ER for any worsening symptoms, abdominal pain, fevers, nausea, vomiting, or any other concerns Patient Language: Danish Prescriptions: New sulfamethoxazole-trimethoprim [Bactrim DS] 800-160 mg tablet 1 tablet PO Q12H 7 Days Qty: 14 0RF No Action rosuvastatin 20 mg tablet 20 mg PO DIRECTED Follow-up/Referrals: Robin,MD Madonna [Primary Care Provider] Time of Disposition: 16:48
== END 2025-04-28 16:50 | disposition home or self-care (01) ==
PROVIDERS: PCP Internal Medicine Geriatric Medicine
DX: N39.0 Urinary tract infection, site not specified (principal); R73.03 Prediabetes; E78.00 Pure hypercholesterolemia, unspecified
CPT/HCPCS: 81003; 87086; 99213; G0463